=== PATIENT | female | born 1955 | race Asian ===

== ENCOUNTER 2017-02-10 08:33 | Emergency (ER) | payer OTHER ==
[~2017-02-10] VITALS: Ht 162.6 cm; Wt 70.5 kg
[~2017-02-10 08:33] MED LIST: AMLO2.5T2 PO; ASPI81TA3 PO; ATOR40TA68 PO; CARV3.1260 PO; HUM100VI14 SC; LORA-441 PO; LORA0.5T PO; LOSA100T7 PO; VITA1TAB69 PO
[2017-02-10 08:37] VITALS: Ht 162.6 cm; Wt 70.5 kg
[2017-02-10] MEDS ORDERED: NITROGLYCERIN 2% 1 GM OINT PKT TD STA (09:00)
[2017-02-10] MEDS ORDERED: ASPIRIN 325 MG TAB PO STA (09:00)
--- NOTE | 2017-02-10 09:17 | RADRPT ---
PROCEDURE: XR Chest. CLINICAL INDICATION: Chest pain . TECHNIQUE: Single frontal chest x-ray. COMPARISON: 07/23/2014 FINDINGS: The lungs are clear of acute infiltrates, edema, effusions, or masses. Calcific atherosclerosis of t he aorta is present.. The cardiomediastinal silhouette is unremarkable. The osseous structures are intact. IMPRESSION: No acute cardiopulmonary disease. RPTAT: QQ .Scotty Akbar MD, MD Date Time Electronically viewed and signed by .Scotty Akbar MD, on 02/10/2017 09:17 .L/
[2017-02-10] MEDS ORDERED: AMLO5TAB4 PO (09:33)
[2017-02-10] MEDS ORDERED: ISOS60TA PO (09:35)
[2017-02-10 09:43] LABS: BASOPHIL # 0.1 10^3/ul (0.0-0.1); BASOPHILS % 0.6 % (0.0-2.0); EOSINOPHILS # 0.2 10^3/ul (0.0-0.5); EOSINOPHILS % 2.3 % (0.0-7.0); HEMATOCRIT 40.2 % (37.0-47.0); HEMOGLOBIN 13.2 g/dl (12.0-16.0); LYMPHOCYTES # 2.6 10^3/ul (0.8-2.9); LYMPHOCYTES % 30.4 % (15.0-51.0); MEAN CORPUSCULAR HEMOGLOBIN 28.9 pg (29.0-33.0); MEAN CORPUSCULAR HGB CONC 32.8 g/dl (32.0-37.0); MEAN CORPUSCULAR VOLUME 88.2 fl (82.0-101.0); MONOCYTE # 0.5 10^3/ul (0.3-0.9); MONOCYTES % 6.3 % (0.0-11.0); NEUTROPHIL # 5.1 10^3/ul (1.6-7.5); NEUTROPHILS % 60.2 % (39.0-77.0); PLATELET COUNT 309 10^3/UL (140-415); RED BLOOD COUNT 4.56 10^6/ul (4.20-5.40); RED CELL DISTRIBUTION WIDTH 12.5 % (11.5-14.5); WHITE BLOOD COUNT 8.5 10^3/ul (4.8-10.8)
[2017-02-10 09:46] LABS: MEAN PLATELET VOLUME 10.8 fl (7.4-10.4); POSITIVE DIFF @See below
[2017-02-10 09:56] VITALS: BP 148/89; PULSE 80; RESP 20; TEMP 98.8
[2017-02-10 10:00] LABS: ANION GAP 17 (8-16); BLOOD UREA NITROGEN 20 mg/dl (7-20); CALCIUM 9.8 mg/dl (8.4-10.2); CARBON DIOXIDE 26 mmol/L (21-31); CHLORIDE 106 mmol/L (97-110); CREATININE 0.87 mg/dl (0.44-1.00); GLUCOSE 74 mg/dl (70-220); POTASSIUM 4.1 mmol/L (3.5-5.1); SODIUM 145 mmol/L (135-144)
[2017-02-10 10:01] LABS: CREATINE KINASE 105 IU/L (23-200)
[2017-02-10 10:20] LABS: CK-MB 0.63 ng/ml (0.0-2.4)
[2017-02-10 10:25] LABS: TROPONIN-I < 0.012 ng/ml (0.00-0.12)
[2017-02-10 10:28] LABS: TROPONIN-I < 0.012 ng/ml (0.00-0.12)
[2017-02-10] MEDS ORDERED: ACETAMINOPHEN 500 MG TAB PO STA (10:29)
[2017-02-10] MEDS ORDERED: morphine 4 MG/ML VIAL IV STA (11:41)
[2017-02-10] MEDS ORDERED: ONDANSETRON 4 MG INJ IV STA (11:41)
--- NOTE | 2017-02-10 11:46 | ERD ---
ER Documentation Chief Complaint Chief Complaint CP DIZZY THIS AM DM AND HTN HX HPI 61-year-old female history of hypertension, hyperlipidemia and diabetes who presents with chest pain and dizziness. She describes several days of left- sided chest pressure that is worse today is 5 out of 10. She describes a prior history of angiogram approximately 4-5 years ago that was reported to be normal. She has had chest pain like this in the past. She does note some mild increase in stressors but none significantly. She denies any pleuritic pain fevers chills or cough. ROS All systems reviewed and are negative except as per history of present illness. Medications Home Meds Active Scripts Lorazepam* (Lorazepam*) 0.5 Mg Tablet, 0.5 MG PO Q8 Y for ANXIETY, #20 TAB Prov:JOAQUIN BRIGHT 07/26/14 Reported Medications Amlodipine Besylate* (Norvasc*) 5 Mg Tablet, 5 MG PO DAILY, TAB 02/10/17 Vitamin B Complex (B Complete) 1 Tab Tablet, 1 TAB PO DAILY 06/18/14 Carvedilol* (Carvedilol*) 3.125 Mg Tablet, 3.125 MG PO BID, TAB 06/18/14 Losartan Potassium* (Losartan Potassium*) 100 Mg Tablet, 100 MG PO DAILY, TAB 06/18/14 Atorvastatin* (Atorvastatin*) 40 Mg Tablet, 40 MG PO HS, TAB 03/27/14 Insulin Human Isophan/Regular (Novolin 70/30) 100 Units/Ml Susp, 26 UNIT SC QPM , EA 03/27/14 Insulin Human Isophan/Regular (Novolin 70/30) 100 Units/Ml Susp, 30 UNIT SC QAM , EA 03/27/14 Aspirin* (Aspirin* Chew) 81 Mg Tab.chew, 81 MG PO DAILY, TAB.CHEW 03/27/14 Discontinued Reported Medications Isosorbide Mononitrate* (Isosorbide Mononitrate*) 60 Mg Tab.er.24h, 60 MG PO DAILY, TAB 02/10/17 Lorazepam* (Ativan*) 0.5 Mg Tablet, 0.5 MG PO Q8 Y for AGITATION/ANXIETY, TAB 07/24/14 Amlodipine Besylate* (Norvasc*) 2.5 Mg Tablet, 2.5 MG PO DAILY, TAB 07/24/14 Allergies Allergies: Coded Allergies: No Known Allergies (Verified Allergy, Mild, 07/26/14) PMhx/Soc History of Surgery: Yes (gall bladder removal [id number]) Anesthesia Reaction: No Hx Neurological Disorder: Yes (anxiety) Hx Respiratory Disorders: No Hx Cardiac Disorders: Yes (htn; high cholesterol, angina) Hx Psychiatric Problems: Yes (anxiety) Hx Miscellaneous Medical Probl: No Hx Alcohol Use: No Hx Substance Use: No Hx Tobacco Use: No Smoking Status: Unknown if ever smoked FmHx Family History: diabetes Physical Exam Vitals Vital Signs Date Time Temp Pulse Resp B/P Pulse Ox O2 Delivery O2 Flow Rate FiO2 02/10/17 09:56 98.8 80 20 148/89 100 Nasal Cannula 2.0 02/10/17 09:24 67 20 143/91 98 Nasal Cannula 2.0 02/10/17 09:07 Nasal Cannula 2 02/10/17 08:37 98.0 79 18 198/88 97 Physical Exam General: Well developed, well nourished, no acute distress Head: Normocephalic, atraumatic. Eyes: Pupils equally reactive, EOM intact ENT: Moist mucous membranes Neck: Supple, no lymphadenopathy Respiratory: Lungs clear bilaterally, no distress Cardiovascular: RRR, no murmurs, rubs, or gallops Abdominal: Soft, non-tender, non-distended, no peritoneal signs : Deferred MSK: No edema, no unilateral swelling, 5/5 strength Neurologic: Alert and oriented, moving all extremities, normal speech, no focal weakness, no cerebellar signs Skin: No rash Psych: Slightly anxious mood Result Diagram: 02/10/1792902/10/17929 Results 24 hrs Laboratory Tests Test 02/10/17 09:30 02/10/17 09:33 02/10/17 09:50 02/10/17 10:00 White Blood Count 8.510^3/ul Red Blood Count 4.5610^6/ul Hemoglobin 13.2g/dl Hematocrit 40.2% Mean Corpuscular Volume 88.2fl Mean Corpuscular Hemoglobin 28.9pg Mean Corpuscular Hemoglobin Concent 32.8g/dl Red Cell Distribution Width 12.5% Platelet Count 86923^3/UL Mean Platelet Volume 10.8fl Neutrophils % 60.2% Lymphocytes % 30.4% Monocytes % 6.3% Eosinophils % 2.3% Basophils % 0.6% Nucleated Red Blood Cells % 0.0/100WBC Neutrophils # 5.110^3/ul Lymphocytes # 2.610^3/ul Monocytes # 0.510^3/ul Eosinophils # 0.210^3/ul Basophils # 0.110^3/ul Nucleated Red Blood Cells # 0.010^3/ul Sodium Level 145mmol/L Potassium Level 4.1mmol/L Chloride Level 106mmol/L Carbon Dioxide Level 26mmol/L Anion Gap 17 Blood Urea Nitrogen 20mg/dl Creatinine 0.87mg/dl Glucose Level 74mg/dl Calcium Level 9.8mg/dl Troponin I < 0.012ng/ml < 0.012ng/ml Bedside Glucose 73mg/dL 133mg/dL Creatine Kinase 105IU/L Creatine Kinase Index 0.6 Creatinine Kinase MB (Mass) 0.63ng/ml Current Medications Medications (Trade) Dose Ordered Sig/Harsh Route PRN Reason Start Time Stop Time Status Last Admin Dose Admin Aspirin (Aspirin) 325 mg ONCE STAT PO 02/10/17 09:00 02/10/17 09:02 DC 02/10/17 09:43 Nitroglycerin (Nitroglycerin 2% Oint) 1 inch ONCE STAT TD 02/10/17 09:00 02/10/17 09:02 DC 02/10/17 09:43 Acetaminophen (Tylenol Tab) 1,000 mg ONCE STAT PO 02/10/17 10:29 02/10/17 10:30 DC 02/10/17 10:40 Procedures/MDM EKG, MONITORS, & DIAGNOSTIC IMAGING: EKG: I reviewed and interpreted a 12-lead EKG. Rhythm: Normal sinus rhythm Ectopy: None Intervals: No abnormalities ST segments: No elevations or depressions T waves: No contiguous inversions Repeat EKG: EKG: I reviewed and interpreted a 12-lead EKG. Rhythm: Normal sinus rhythm Ectopy: None Intervals: No abnormalities ST segments: No elevations or depressions T waves: No contiguous inversions Chest x-ray: I reviewed and interpreted a 1 view of the chest Mediastinum: No enlargement Cardiac silhouette: No cardiomegaly Airspace: Clear lung nava bilaterally without evidence of pneumothorax Bones: No evidence of fracture LAB INTERPRETATION: Negative troponin MEDICAL DECISION MAKING: The patient's history, physical exam and clinical presentation is concerning for possible cardiogenic etiology and acute coronary syndrome. Based on the patient's clinical exam and history and risk factors, I have a much lower clinical concern for pulmonary embolism, acute aortic dissection, pneumothorax, pneumonia, cardiac tamponade HEART Score: 5 MACE Rate: 16.6% Shared Decision Making: We had a conversation regarding risk stratification, MACE rate, and the risks, benefits, alternatives of disposition planning options. Disposition planning: Given the patient's risk profile despite cardiac workup in the past I would recommend hospitalization. ER COURSE: The patient was given aspirin, nitro, morphine. The patient has minimal discomfort at this time and now her pain is controlled. The patient has a negative troponin and serial EKGs that are normal. The patient's insurance is capitated to outside hospital. I was able to speak to the referring physician Dr. Brumfield, who has accepted the patient. Patient did have chest pain and she is chest pain-free currently with serial EKGs that are negative and a cardiac workup in the past. I believe the benefits of transfer outweigh the risks. The patient is stable for transfer and agreeable for transfer. I kept the patient and/or family informed of laboratory and diagnostic imaging results throughout the emergency room course. DISPOSITION PLAN: Transfer to [facility] based on capitation CONSULTATION: Accepting care team and consultations: I discussed the current laboratory data, diagnostic imaging and emergency care provided. Admitting team: Dr. Brumfield Admitting team indication: Insurance directed Departure Diagnosis: Primary Impression: Chest pain Chest pain type: unspecified Qualified Code: R07.9 - Chest pain, unspecified type Condition: Stable ANILA LEWIS MD Feb 10, 2017 11:46
== END 2017-02-10 12:33 | disposition short-term general hospital (02) ==
LOC: E/R 08:33
DX: R07.9 Chest pain, unspecified (principal); I10 Essential (primary) hypertension; E11.9 Type 2 diabetes mellitus without complications; Z79.4 Long term (current) use of insulin; Z79.82 Long term (current) use of aspirin
CPT/HCPCS: 36415; 71010; 80048; 82550; 82553; 82962; 84484; 85025; J2270; J2405; Z7502; Z7610; 93005

== ENCOUNTER 2017-03-30 18:28 | Emergency (ER) | payer SELFPAY ==
[~2017-03-30] VITALS: Ht 160 cm; Wt 69.9 kg
[~2017-03-30 18:28] MED LIST changes: -AMLO2.5T2 PO; +AMLO5TAB4 PO; -LORA-441 PO
[2017-03-30 18:31] VITALS: Ht 160 cm; Wt 69.9 kg
== END 2017-03-30 19:47 | disposition left against medical advice (07) ==
LOC: E/R 18:28
DX: Z53.21 Procedure and treatment not carried out due to patient leaving prior to being seen by health care provider (principal)

== ENCOUNTER 2017-08-23 08:28 | Emergency (ER) | END 2017-08-23 15:09 | disposition home or self-care (01) ==